=== PATIENT | male | born 1960 | race Caucasian/White ===

== ENCOUNTER 2018-02-07 22:30 | Emergency (ER) | payer SELFPAY ==
[2018-02-07 22:36] VITALS: BP 142/85
--- NOTE | 2018-02-07 22:44 | CONSULT ---
Consult Consult: The patient was brought in by police for legal blood draw. He was offered an [facility] medical screening exam and refused. He has no medical complaints. No history nor physical was performed nor was he seen as an emergency department patient.
== END 2018-02-07 23:10 | disposition home or self-care (01) ==
LOC: ED 22:30
DX: Z02.83 Encounter for blood-alcohol and blood-drug test (principal)
CPT/HCPCS: 99282